=== PATIENT | male | born 1940 | race Caucasian/White ===

== ENCOUNTER 2017-08-11 17:43 | Inpatient (IN) | payer MEDICARE ==
[~2017-08-11] VITALS: Ht 180.3 cm; Wt 124.6 kg
[~2017-08-11 17:43] MED LIST: ALBU8.5H5 INH; ATEN50TA41 PO; BUDE10.2 INH; CHOL1CRY3 PO; CYAN100028 PO; GLIP10TA13 PO; GLIP5TAB10 PO; HYDR25TA6 PO; INSU100I18 SQ-INSULIN; INSULIN NPH SC; LOPE2CAP PO; LOSA100T6 PO; MAGN400T26 PO; MULT-750 PO; OMEG500C PO; OMEP40CA6 PO; SIMV20TA PO; TERA2CAP3 PO; TIOT18CA INH
[2017-08-11] MEDS ORDERED: SODIUM CHLORIDE 0.9% 1,000 ML IV ONE (17:56)
[2017-08-11] MEDS ORDERED: SODIUM CHLORIDE FLUSH 10ML SYR IVF ONE (18:00)
[2017-08-11] MEDS ORDERED: PLEASE ENTER HEIGHT AND WEIGHT MC SCH (18:30)
[2017-08-11 18:49] LABS: BASOPHILS # (AUTO) 0.01 x10^3/uL (0-0.1); BASOPHILS % (AUTO) 0 % (0-1); EOSINOPHILS % (AUTO) 0 % (1-7); LYMPHOCYTES # (AUTO) 1.06 x10^3/uL (1-3.4); LYMPHOCYTES % (AUTO) 7 % (22-44); MD NO; MEAN CORPUSCULAR HEMOGLOBIN 28.1 pg (27.5-34.5); MEAN CORPUSCULAR HGB CONC 32.1 g/dL (33.2-36.2); MEAN CORPUSCULAR VOLUME 87.5 fL (81-97); MEAN PLATELET VOLUME 7.8 fL (7.4-10.4); MONOCYTES # (AUTO) 0.75 x10^3/uL (0.2-0.8); MONOCYTES % (AUTO) 5 % (2-9); NEUTROPHILS # (AUTO) 14.46 x10^3/uL (1.8-6.8); NEUTROPHILS % (AUTO) 89 % (42-75); PLATELET COUNT 125 x10^3/uL (130-400); RED BLOOD COUNT 4.94 x10^6/uL (4.38-5.82); RED CELL DISTRIBUTION WIDTH 14.4 % (9.4-14.8)
[2017-08-11] MEDS ORDERED: CEFTRIAXONE PMX 1GM/50ML 50 ML IV ONE (19:00)
[2017-08-11] MEDS ORDERED: AZITHROMYCIN 500 MG in SODIUM CHLORIDE 0.9% 250 ML IV ONE (19:00)
[2017-08-11 19:02] LABS: ALANINE AMINOTRANSFERASE 41 U/L (12-78); ALBUMIN 2.6 g/dL (3.4-5.0); ANION GAP 5 mmol/L (5-15); CALCIUM 7.6 mg/dL (8.5-10.1); CHLORIDE 114 mmol/L (98-107); CREATININE 1.28 mg/dL (0.7-1.3)
[2017-08-11 19:06] LABS: ALKALINE PHOSPHATASE 42 U/L (45-117); BILIRUBIN,TOTAL 0.6 mg/dL (0.2-1.0); TOTAL PROTEIN 5.8 g/dL (6.4-8.2); TROPONIN I 0.062 ng/mL (0.000-0.045)
[2017-08-11 19:11] LABS: INTERNATIONAL NORMALIZED RATIO 1.01 (0.93-1.1); PROTHROMBIN TIME 10.5 Seconds (9.6-11.5)
[2017-08-11] MEDS ORDERED: CEFTRIAXONE PMX 1GM/50ML 50 ML ONE (19:21)
[2017-08-11] MEDS ORDERED: DEXTROSE 50%, 50ML SYRINGE ONE ×2 (19:39→21:21)
[2017-08-11] MEDS ORDERED: PRED20TA PO (19:59)
[2017-08-11] MEDS ORDERED: CEFD300C37 PO (19:59)
[2017-08-11] MEDS ORDERED: TRAZ50TA18 PO (19:59)
[2017-08-11] MEDS ORDERED: GUAI400T66 PO (19:59)
[2017-08-11] MEDS ORDERED: CHLO25TA PO (19:59)
[2017-08-11] MEDS ORDERED: D5%-0.45% NACL 1,000 ML IV SCH (20:00)
[2017-08-11] MEDS ORDERED: DEXTROSE 50%, 50ML SYRINGE IVPush ONE (20:00)
[2017-08-11] MEDS: DEXTROSE 50%, 50ML SYRINGE IVPush PRN ×2 (21:23→22:12)
[2017-08-11] MEDS ORDERED: DEXTROSE 4 GM TAB.CHEW PO PRN (21:30)
[2017-08-11] MEDS ORDERED: GLUCAGON 1 MG IM PRN (21:30)
[2017-08-11] MEDS ORDERED: ALBUTEROL/IPRATROPIUM 2.5MG/0.5MG, 3 ML ONE (21:38)
[2017-08-11] MEDS: D5%-LACTATED RINGERS 1,000 ML IV SCH (22:15)
[2017-08-11] MEDS: SODIUM CHLORIDE FLUSH 10ML SYR IVF SCH (22:18)
[2017-08-12] MEDS ORDERED: ENALAPRILAT 1.25 MG/ML, 2ML IV PRN (01:30)
[2017-08-12] MEDS: hydrALAzine 20 MG/ML, 1ML IV PRN ×2 (01:47→14:12)
[2017-08-12 04:01] VITALS: BP 141/76
[2017-08-12] MEDS: ALBUTEROL/IPRATROPIUM 2.5MG/0.5MG, 3 ML NPPB SCH ×4 (07:27→18:38)
[2017-08-12] MEDS ORDERED: CEFTRIAXONE PMX 1GM/50ML 50 ML IV SCH (07:30)
[2017-08-12] MEDS: D5%-LACTATED RINGERS 1,000 ML IV SCH (07:45)
[2017-08-12] MEDS: AZITHROMYCIN 500 MG in SODIUM CHLORIDE 0.9% 250 ML IV SCH (08:36)
[2017-08-12 08:40] LABS: BASOPHILS # (AUTO) 0.09 x10^3/uL (0-0.1); BASOPHILS % (AUTO) 1 % (0-1); EOSINOPHILS # (AUTO) 0.01 x10^3/uL (0-0.4); EOSINOPHILS % (AUTO) 0 % (1-7); LYMPHOCYTES # (AUTO) 1.66 x10^3/uL (1-3.4); LYMPHOCYTES % (AUTO) 15 % (22-44); MD NO; MEAN CORPUSCULAR HEMOGLOBIN 28.1 pg (27.5-34.5); MEAN CORPUSCULAR HGB CONC 32.2 g/dL (33.2-36.2); MEAN CORPUSCULAR VOLUME 87.1 fL (81-97); MEAN PLATELET VOLUME 7.9 fL (7.4-10.4); MONOCYTES # (AUTO) 0.48 x10^3/uL (0.2-0.8); MONOCYTES % (AUTO) 4 % (2-9); NEUTROPHILS # (AUTO) 8.81 x10^3/uL (1.8-6.8); NEUTROPHILS % (AUTO) 80 % (42-75); PLATELET COUNT 115 x10^3/uL (130-400); RED BLOOD COUNT 4.53 x10^6/uL (4.38-5.82); RED CELL DISTRIBUTION WIDTH 14.1 % (9.4-14.8)
[2017-08-12 08:49] LABS: ANION GAP 6 mmol/L (5-15); CALCIUM 7.3 mg/dL (8.5-10.1); CHLORIDE 112 mmol/L (98-107); CREATININE 1.25 mg/dL (0.7-1.3)
[2017-08-12 08:52] LABS: TROPONIN I 0.053 ng/mL (0.000-0.045)
[2017-08-12] MEDS: LOSARTAN 50MG TABLET PO SCH (18:44)
[2017-08-12] MEDS: ENOXAPARIN 40 MG/0.4 ML SQ SCH (20:15)
[2017-08-12] MEDS: SODIUM CHLORIDE FLUSH 10ML SYR IVF SCH (20:15)
[2017-08-12] MEDS: TERAZOSIN 2MG CAPSULE PO SCH (20:15)
[2017-08-12 23:28] VITALS: BP 169/70
[2017-08-13 01:14] VITALS: BP 162/69
[2017-08-13 07:05] VITALS: BP 162/74
[2017-08-13] MEDS: INSULIN ASPART 100 UNITS/ML, PEN SQ-INSULIN SCH ×5 (07:13→20:55)
[2017-08-13] MEDS: ALBUTEROL/IPRATROPIUM 2.5MG/0.5MG, 3 ML NPPB SCH ×4 (07:25→20:00)
[2017-08-13] MEDS: SODIUM CHLORIDE FLUSH 10ML SYR IVF SCH ×2 (07:26→20:54)
[2017-08-13] MEDS ORDERED: CEFTRIAXONE 1,000 MG in DEXTROSE 5% 50 ML IV SCH (07:30)
[2017-08-13] MEDS: LOSARTAN 50MG TABLET PO SCH (08:30)
[2017-08-13] MEDS: HYDROCHLOROTHIAZIDE 25 MG TABLET PO SCH (08:30)
[2017-08-13] MEDS: AZITHROMYCIN 500 MG in SODIUM CHLORIDE 0.9% 250 ML IV SCH (08:33)
[2017-08-13 13:25] VITALS: BP 169/73
[2017-08-13] MEDS ORDERED: ALBUTEROL SULFATE 2.5 MG/3 ML NPPB PRN (16:30)
[2017-08-13] MEDS: INSULIN DETEMIR 100 UNITS/ML, PEN SQ-INSULIN SCH (17:54)
[2017-08-13] MEDS: CARVEDILOL 6.25 MG TABLET PO SCH (17:54)
[2017-08-13 19:21] VITALS: BP 154/72
[2017-08-13] MEDS: SIMVASTATIN 20 MG TABLET PO SCH (20:54)
[2017-08-13] MEDS: CEFDINIR 300 MG CAPSULE PO SCH (20:54)
[2017-08-13] MEDS: TERAZOSIN 2MG CAPSULE PO SCH (20:54)
[2017-08-13] MEDS: ENOXAPARIN 40 MG/0.4 ML SQ SCH (20:55)
[2017-08-13] MEDS: FLUTICASONE/VILANTEROL 200-25MCG/INH INH SCH (22:56)
[2017-08-14 00:57] VITALS: BP 151/84
[2017-08-14 05:08] LABS: CHLORIDE 110 mmol/L (98-107)
[2017-08-14 05:13] LABS: ANION GAP 5 mmol/L (5-15); CALCIUM 7.5 mg/dL (8.5-10.1); CREATININE 1.48 mg/dL (0.7-1.3)
[2017-08-14 05:18] LABS: MEAN CORPUSCULAR HEMOGLOBIN 28.1 pg (27.5-34.5); MEAN CORPUSCULAR HGB CONC 32.4 g/dL (33.2-36.2); MEAN CORPUSCULAR VOLUME 86.9 fL (81-97); RED BLOOD COUNT 4.18 x10^6/uL (4.38-5.82); RED CELL DISTRIBUTION WIDTH 14.3 % (9.4-14.8)
[2017-08-14 06:22] LABS: BASOPHILS # (AUTO) 0.02 x10^3/uL (0-0.1); BASOPHILS % (AUTO) 0 % (0-1); EOSINOPHILS # (AUTO) 0.13 x10^3/uL (0-0.4); EOSINOPHILS % (AUTO) 2 % (1-7); LYMPHOCYTES # (AUTO) 1.19 x10^3/uL (1-3.4); LYMPHOCYTES % (AUTO) 16 % (22-44); MD SCAN; MEAN PLATELET VOLUME 8.7 fL (7.4-10.4); MONOCYTES # (AUTO) 0.66 x10^3/uL (0.2-0.8); MONOCYTES % (AUTO) 9 % (2-9); NEUTROPHILS # (AUTO) 5.68 x10^3/uL (1.8-6.8); NEUTROPHILS % (AUTO) 74 % (42-75); PLATELET COUNT 80 x10^3/uL (130-400)
[2017-08-14] MEDS: CARVEDILOL 6.25 MG TABLET PO SCH ×2 (06:32→17:52)
[2017-08-14] MEDS: INSULIN ASPART 100 UNITS/ML, PEN SQ-INSULIN SCH ×4 (06:39→20:26)
[2017-08-14] MEDS: INSULIN DETEMIR 100 UNITS/ML, PEN SQ-INSULIN SCH ×2 (06:40→17:51)
[2017-08-14] MEDS: ALBUTEROL/IPRATROPIUM 2.5MG/0.5MG, 3 ML NPPB SCH ×4 (06:45→19:55)
[2017-08-14 07:41] VITALS: BP 160/72
[2017-08-14] MEDS ORDERED: CEFTRIAXONE 1,000 MG in DEXTROSE 5% 50 ML IV SCH (08:30)
[2017-08-14] MEDS: CEFDINIR 300 MG CAPSULE PO SCH ×2 (08:32→20:25)
[2017-08-14] MEDS: HYDROCHLOROTHIAZIDE 25 MG TABLET PO SCH (08:32)
[2017-08-14] MEDS: LOSARTAN 50MG TABLET PO SCH (08:32)
[2017-08-14] MEDS: SODIUM CHLORIDE 0.9% 1,000 ML IV SCH ×2 (08:33→20:24)
[2017-08-14] MEDS: SODIUM CHLORIDE FLUSH 10ML SYR IVF SCH ×2 (08:33→20:24)
[2017-08-14] MEDS: FLUTICASONE/VILANTEROL 200-25MCG/INH INH SCH (08:33)
[2017-08-14] MEDS ORDERED: CHOLECALCIFEROL 25 MG PO SCH (09:00)
[2017-08-14] MEDS ORDERED: IPRATROPIUM 0.5 MG/2.5 ML INHA NPPB SCH (09:00)
[2017-08-14 13:50] VITALS: BP 153/68
[2017-08-14 19:29] VITALS: BP 174/77
[2017-08-14] MEDS: SIMVASTATIN 20 MG TABLET PO SCH (20:24)
[2017-08-14] MEDS: TERAZOSIN 2MG CAPSULE PO SCH (20:24)
[2017-08-14] MEDS: ENOXAPARIN 40 MG/0.4 ML SQ SCH (20:25)
[2017-08-15 00:09] VITALS: BP 168/78
[2017-08-15] MEDS: CARVEDILOL 6.25 MG TABLET PO SCH (05:13)
[2017-08-15] MEDS: ALBUTEROL/IPRATROPIUM 2.5MG/0.5MG, 3 ML NPPB SCH ×2 (06:55→11:50)
[2017-08-15] MEDS: INSULIN ASPART 100 UNITS/ML, PEN SQ-INSULIN SCH ×2 (07:26→12:02)
[2017-08-15] MEDS: INSULIN DETEMIR 100 UNITS/ML, PEN SQ-INSULIN SCH (07:26)
[2017-08-15 08:09] VITALS: BP 162/78
[2017-08-15] MEDS: FLUTICASONE/VILANTEROL 200-25MCG/INH INH SCH (08:23)
[2017-08-15] MEDS: HYDROCHLOROTHIAZIDE 25 MG TABLET PO SCH (08:24)
[2017-08-15] MEDS: SODIUM CHLORIDE FLUSH 10ML SYR IVF SCH (08:24)
[2017-08-15] MEDS: CEFDINIR 300 MG CAPSULE PO SCH (08:24)
[2017-08-15] MEDS: LOSARTAN 50MG TABLET PO SCH (08:24)
[2017-08-15] MEDS: SODIUM CHLORIDE 0.9% 1,000 ML IV SCH (12:02)
[2017-08-15 13:43] VITALS: BP 185/72
[2017-08-15] MEDS: hydrALAzine 20 MG/ML, 1ML IV PRN (14:07)
[2017-08-15] MEDS ORDERED: INSU100I13 SC (14:12)
== END 2017-08-15 17:12 | disposition home or self-care (01) | DRG 193 ==
LOC: ED 20:25 → EDIP 20:30 → CCU 21:34 → 3NE 08-12 23:24
PROVIDERS: ADMIT Internal Medicine; ATTEND Internal Medicine
DX: J18.9 Pneumonia, unspecified organism (principal); G93.41 Metabolic encephalopathy; E11.649 Type 2 diabetes mellitus with hypoglycemia without coma; E66.01 Morbid (severe) obesity due to excess calories; E86.0 Dehydration; E87.1 Hypo-osmolality and hyponatremia; J44.0 Chronic obstructive pulmonary disease with (acute) lower respiratory infection; E78.00 Pure hypercholesterolemia, unspecified; E78.5 Hyperlipidemia, unspecified; I10 Essential (primary) hypertension; Z79.4 Long term (current) use of insulin; Z91.19 Patient's noncompliance with other medical treatment and regimen; Z88.8 Allergy status to other drugs, medicaments and biological substances; Z68.38 Body mass index [BMI] 38.0-38.9, adult; Z79.899 Other long term (current) drug therapy
CPT/HCPCS: 36415; 71045; 80048; 80053; 82962; 83605; 83880; 84484; 85025; 85610; 87040; 87081; 93005; 94640; 96361; 96365; 96367; 96375; J0456; J0696; J1650; J1815; J7620; J0360; J7030; J7050; J7121